=== PATIENT | female | born 2005 | race Caucasian/White ===

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

== ENCOUNTER 2023-05-13 08:10 | Outpatient (CLI) | payer MEDICAID, SELFPAY ==
[2023-05-15 12:15] LABS: Chlamydia Result Negative (Negative); GC Result Negative (Negative)
== END 2023-05-13 08:11 | disposition home or self-care (01) ==
LOC: ORDER INT 08:10
PROVIDERS: PCP Nurse Practitioner Family; Visit Provider Nurse Practitioner Pediatrics
DX: Z00.00 Encounter for general adult medical examination without abnormal findings (principal); Z11.3 Encounter for screening for infections with a predominantly sexual mode of transmission
CPT/HCPCS: 87491; 87591

== ENCOUNTER 2024-06-08 12:00 | Outpatient (REF) | payer MEDICAID, SELFPAY ==
[2024-06-09 15:59] LABS: Chlamydia Result Negative (Negative); GC Result Negative (Negative)
== END 2024-06-08 12:01 | disposition home or self-care (01) ==
LOC: LBN 12:00
PROVIDERS: PCP Nurse Practitioner Family; Visit Provider Nurse Practitioner Pediatrics
DX: Z11.3 Encounter for screening for infections with a predominantly sexual mode of transmission (principal)
CPT/HCPCS: 87491; 87591

== ENCOUNTER 2025-05-17 10:55 | Outpatient (REF) | payer MEDICAID, SELFPAY ==
[2025-05-17 16:04] LABS: Abs Immature Grans 0.02 10^3/uL (0.0-0.06); HCT 44.3 % (36.0-46.0); HGB 14.6 g/dL (11.2-15.7); Immature Grans % 0.2 %; MCH 28.2 pg (27.0-33.0); MCHC 33.0 % (32.0-36.0); MCV 86 fL (80-95); MPV 9.5 fL (8.0-11.0); Platelet Count 343 10^3/uL (130-400); RBC 5.17 10^6/uL (3.93-5.22); RDW 12.3 % (11.7-14.6); RDW-SD 38.8 fL; WBC 9.34 10^3/uL (4.4-10.8)
[2025-05-17 16:21] LABS: ALT 29 U/L (14-59); AST 20 U/L (15-37); Albumin 4.6 g/dL (3.4-5.0); Alkaline Phosphatase 78 U/L (46-116); Anion Gap 7.9 mmol/L (3-11); BUN 14 mg/dL (7-18); Bilirubin, Total 0.4 mg/dL (0.2-1.0); CO2 29.1 mmol/L (21.0-32.0); Calcium 10.0 mg/dL (8.5-10.1); Chloride 104 mmol/L (98-107); Estimated GFR 125.33 (mL/min/1.73m2); Glucose 95 mg/dL (74-106); Potassium 4.4 mmol/L (3.5-5.1); Sodium 141 mmol/L (136-145); TSH 4.01 uIU/mL (0.36-3.74); Total Protein 8.2 g/dL (6.4-8.2)
== END 2025-05-17 10:56 | disposition home or self-care (01) ==
LOC: NCHCN 10:55
PROVIDERS: Visit Provider Student in an Organized Health Care Education/Training Program
DX: R79.89 Other specified abnormal findings of blood chemistry (principal); E66.3 Overweight; Z68.27 Body mass index [BMI] 27.0-27.9, adult
CPT/HCPCS: 80053; 86850; 86900; 86901; 84439; 84443; 85025